=== PATIENT | male | born 1975 | race African-American/Black ===

== ENCOUNTER 2016-11-06 15:33 | Emergency (ER) | payer OTHER ==
[2016-11-06 15:44] VITALS: BP 143/75; PULSE 88; TEMP 98.2; BMI 31.4
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
[2016-11-06] MEDS ORDERED: IBUPROFEN 600 MG TABLET (FP) PO ONE ×2 (16:11→16:16)
== END 2016-11-06 16:43 | disposition home or self-care (01) ==
LOC: JERFT 15:33
DX: S13.4XXA Sprain of ligaments of cervical spine, initial encounter (principal); V43.62XA Car passenger injured in collision with other type car in traffic accident, initial encounter; Y92.414 Local residential or business street as the place of occurrence of the external cause; Y99.0 Civilian activity done for income or pay; Y93.89 Activity, other specified
CPT/HCPCS: 99281-25

== ENCOUNTER 2023-06-23 11:31 | Emergency (ER) | payer BC, OTHER ==
[2023-06-23 11:39] VITALS: RESP 18; TEMP 97.8; BMI 34.7
[2023-06-23 13:28] LABS: BASO % 0.4 % (0-2.0); EOS % 3.6 % (0-4.5); HEMATOCRIT 46.2 % (35.4-49); HEMOGLOBIN 15.1 GM/dL (11.7-16.9); LYMPH % 25.3 % (8-40); MCH 25.7 pg (25.7-33.7); MCHC 32.8 g/dl (32.0-35.9); MEAN CELL VOLUME 78.4 fl (80-96); MEAN PLT VOLUME 7.4 fl (7.5-11.1); MONO % 6.4 % (3.8-10.2); NEUT % 64.3 % (42.8-82.8); PLATELET COUNT 353 10^3/uL (134-434); RBC 5.89 M/mm3 (4.00-5.60); RDW 16.7 % (11.9-15.9)
[2023-06-23 13:44] LABS: POTASSIUM 4.1 mmol/L (3.5-5.1)
[2023-06-23 13:46] LABS: ALBUMIN 3.7 g/dl (3.4-5.0); CALCIUM 9.3 mg/dL (8.5-10.1)
[2023-06-23 13:47] LABS: BLOOD UREA NITROGEN 15.9 mg/dL (7-18)
[2023-06-23 13:49] LABS: CREATININE 1.1 mg/dL (0.55-1.3)
[2023-06-23 13:51] LABS: BILIRUBIN,TOTAL 0.3 mg/dL (0.2-1); TOT PROT 8.1 g/dl (6.4-8.2)
[2023-06-23 14:28] VITALS: BP 133/88; PULSE 86
== END 2023-06-23 14:29 | disposition home or self-care (01) ==
LOC: JER 11:31
DX: J40 Bronchitis, not specified as acute or chronic (principal); R05.9 Cough, unspecified; J34.89 Other specified disorders of nose and nasal sinuses
CPT/HCPCS: 36415; 71046-TC-FY; 80053; 84484; 85025; 93005; 93010; 99285-25